=== PATIENT | female | born 1940 | race Hispanic/Latino ===

== ENCOUNTER 2024-03-09 12:44 | Emergency (ER) | payer MEDICARE ==
[~2024-03-09] VITALS: Ht 160 cm; Wt 58.5 kg
[~2024-03-09 12:44] MED LIST: ASPIR 8181 MG PO; ASPIRIN325 MG PO; ASPIRIN81 MG PO; ATORVASTATIN CA80 MG PO; CARAFATE1 GM PO; CARAFATE1 GM/10 ML PO; CARBIDOPA-LEVO1 EA11 PO; DEXILANT30 MG PO; DIGOXIN250 MCG PO; FAMOTIDINE20 MG PO; METFORMIN HCL500 MG PO; METOPROLOL SUCC50 MG PO; MIRTAZAPINE15 MG PO; ULTRAM50 MG PO
[2024-03-09 14:05] VITALS: PULSE 71; RESP 17; TEMP 98.3; O2SAT 96
[2024-03-09] MEDS ORDERED: DICLOFENAC POTA50 MG PO (14:30)
[2024-03-09] MEDS ORDERED: KETOROLAC TROMETHAMINE 30 MG/ML VIAL ONE (14:31)
[2024-03-09] MEDS: KETOROLAC TROMETHAMINE 30 MG/ML VIAL IM ONE (14:38)
== END 2024-03-09 14:38 | disposition home or self-care (01) ==
LOC: ER 13:19
DX: M19.09 Primary osteoarthritis, other specified site (principal); I10 Essential (primary) hypertension; E78.5 Hyperlipidemia, unspecified; G20.A1 Parkinson's disease without dyskinesia, without mention of fluctuations
CPT/HCPCS: 99282; J1885